=== PATIENT | male | born 1995 | race Caucasian/White ===

== ENCOUNTER → 2017-07-19 | Outpatient (REF) ==
--- NOTE | 2017-07-19 12:19 | Diagnostic Imaging Report ---
3 views of the left wrist. INDICATION: Left wrist pain. FINDINGS: No fracture, dislocation or radiopaque foreign body. IMPRESSION: Unremarkable exam. Dictated by: Dictated on workstation # [id number]
== END | disposition home or self-care (01) ==
LOC: OCC 11:52
PROVIDERS: ATTEND Nurse Practitioner Family
CPT/HCPCS: 73110